=== PATIENT | male | born 1990 | race Caucasian/White ===

== ENCOUNTER 2021-01-04 11:22 | Inpatient (IN) ==
[2021-01-04] MEDS ORDERED: Azithromycin 500 MG in 0.9 % Sodium Chloride 250 ML IVPB ONE (12:01)
[2021-01-04] MEDS ORDERED: cefTRIAXone 1,000 MG in 0.9 % Sodium Chloride Mini Bag 100 ML IVPB ONE (12:01)
[2021-01-04] MEDS ORDERED: Piperacillin/Tazobactam 3.375 GM in Water for inj. (sterile) 20 ML IVP ONE (12:02)
[2021-01-04] MEDS ORDERED: Piperacillin/Tazobactam 3.375 GM in 0.9 % Sodium Chloride Mini Bag 100 ML IVPB ONE (12:12)
[2021-01-04 13:02] LABS: Basophils # 0.1 K/mcL (0.0-0.2); Basophils % 0.4 %; Eosinophils # 0.3 K/mcL (0.0-0.6); Eosinophils % 2.6 %; Hematocrit 36.7 % (37.5-50.1); Hemoglobin 11.3 g/dL (12.9-16.9); Immature Granulocytes % 0.5 % (0-4); Lymphocytes # 1.2 K/mcL (0.6-4.6); Lymphocytes % 9.2 %; Mean Corpuscular HGB Conc 30.8 g/dL (31.6-35.5); Mean Corpuscular Hemoglobin 31.7 pg (28.0-33.3); Mean Corpuscular Volume 102.8 fL (83.0-100.0); Mean Platelet Volume 8.3 fL (9.4-12.4); Neutrophils # 9.4 K/mcL (1.6-8.9); Platelet Count 537 K/mcL (140-400); Red Blood Count 3.57 M/mcL (4.19-5.50); Red Cell Distribution Width 12.7 % (11.5-14.5); Segmented Neutrophils % 72.3 %
[2021-01-04 13:21] LABS: Alanine Aminotransferase 12 Units/L (7-52); Albumin 3.8 g/dL (3.5-5.7); Albumin/Globulin Ratio 0.9 (1.1-2.2); Alkaline Phosphatase 149 Units/L (34-104); Aspartate Amino Transferase 17 Units/L (13-39); BUN/Creatinine Ratio 30 (6-26); Bilirubin,Indirect 0.3 mg/dL (0.0-1.0); Bilirubin,Total 0.3 mg/dL (0.3-1.0); Blood Urea Nitrogen 29 mg/dL (6-20); Calcium 9.9 mg/dL (8.6-10.3); Carbon Dioxide 26 mEq/L (23-29); Chloride 110 mEq/L (98-107); Globulin 4.2 g/dL (2.4-3.5); Glucose 120 mg/dL (70-105); Lipase < 3 Units/L (11-82); Osmolality,Calculated 307 (280-300); Phenytoin (Dilantin) 11.2 mcg/mL (10.0-20.0); Potassium 3.8 mEq/L (3.5-5.1); Sodium 145 mEq/L (136-145); eGFR For African Americans > 60 (> 60); eGFR For Non-African Americans > 60 (> 60)
[2021-01-04] MEDS ORDERED: Naloxone 0.4 MG/ML INJ IVP PRN (14:49)
[2021-01-04] MEDS ORDERED: Ondansetron 4 MG/2 ML VIAL IVP PRN (14:49)
[2021-01-04] MEDS: lamoTRIgine 100 MG TABLET PO SCH (17:44)
[2021-01-04] MEDS: Fluticasone Propionate Nasal 50 MCG/SPRAY BOTTLE NS SCH (19:19)
[2021-01-04] MEDS: PHENobarbitaL 32.4 MG TABLET PO SCH (20:09)
[2021-01-04] MEDS: Lactobacillus 1 EACH CAP.SPRINK PO SCH (20:10)
[2021-01-04] MEDS: Piperacillin/Tazobactam 3.375 GM in 0.9 % Sodium Chloride Mini Bag 100 ML IVPB SCH (20:11)
[2021-01-04] MEDS ORDERED: Loratadine 10 MG TABLET PO SCH (21:00)
[2021-01-04] MEDS ORDERED: OLOPATADINE HCL BOTH EYES SCH (21:00)
[2021-01-04] MEDS: PATANOL 0.1% EYE DROPS OP SCH (22:19)
[2021-01-04] MEDS: CETIRIZINE 10MG TABLET PO SCH (22:20)
[2021-01-04 22:26] LABS: Bilirubin,Urine Negative (Negative); Blood,Urine Trace (Negative); Clarity,Urine Clear (Clear); Color,Urine Light-Yellow (Yellow); Glucose,Urine (UA) Normal (Normal); Ketones,Urine Negative (Negative); Leukocyte Esterase,Urine Negative (Negative); Mucus,Urine Few per lpf (None-Few); Nitrite,Urine Negative (Negative); PH,Urine 7.5 pH Units (5.0-8.0); Protein,Urine 70 mg/dL (Neg-Trace); RBC,Urine 0-3 per hpf (0-3); Specific Gravity,Urine 1.023 (1.010-1.025); Squamous Epithelial Cell,Urine Few per hpf (None-Few); Urobilinogen,Urine Normal (Normal); WBC,Urine 0-3 per hpf (0-3)
[2021-01-05] MEDS: Acetaminophen 325 MG TABLET PO PRN (00:28)
[2021-01-05 01:51] LABS: Basophils % 0.3 %; Eosinophils # 0.5 K/mcL (0.0-0.6); Eosinophils % 4.1 %; Hematocrit 32.5 % (37.5-50.1); Hemoglobin 10.7 g/dL (12.9-16.9); Immature Granulocytes % 0.4 % (0-4); Lymphocytes # 1.6 K/mcL (0.6-4.6); Lymphocytes % 12.9 %; Mean Corpuscular HGB Conc 32.9 g/dL (31.6-35.5); Mean Corpuscular Volume 100.3 fL (83.0-100.0); Mean Platelet Volume 8.2 fL (9.4-12.4); Monocytes # 1.7 K/mcL (0.0-1.3); Monocytes % 13.9 %; Platelet Count 529 K/mcL (140-400); Red Blood Count 3.24 M/mcL (4.19-5.50); Red Cell Distribution Width 12.6 % (11.5-14.5); Segmented Neutrophils % 68.4 %
[2021-01-05 01:52] LABS: Neutrophils # 8.5 K/mcL (1.6-8.9); White Blood Count 12.4 K/mcL (4.3-11.1)
[2021-01-05 02:15] LABS: % Iron Saturation 10 % (20-55); Alanine Aminotransferase 12 Units/L (7-52); Albumin 3.4 g/dL (3.5-5.7); Albumin/Globulin Ratio 0.9 (1.1-2.2); Alkaline Phosphatase 130 Units/L (34-104); Aspartate Amino Transferase 14 Units/L (13-39); BUN/Creatinine Ratio 22 (6-26); Bilirubin,Direct 0.1 mg/dL (0.0-0.2); Bilirubin,Indirect 0.3 mg/dL (0.0-1.0); Bilirubin,Total 0.4 mg/dL (0.3-1.0); Blood Urea Nitrogen 19 mg/dL (6-20); Calcium 8.9 mg/dL (8.6-10.3); Carbon Dioxide 20 mEq/L (23-29); Chloride 112 mEq/L (98-107); Globulin 3.9 g/dL (2.4-3.5); Glucose 120 mg/dL (70-105); Iron 17 mcg/dL (65-175); Magnesium 1.8 mg/dL (1.6-2.6); Osmolality,Calculated 299 (280-300); Phosphorous 2.4 mg/dL (2.7-4.5); Potassium 3.7 mEq/L (3.5-5.1); Sodium 143 mEq/L (136-145); Total Protein 7.3 g/dL (6.4-8.9); Transferrin 120 mg/dL (203-362); eGFR For African Americans > 60 (> 60); eGFR For Non-African Americans > 60 (> 60)
[2021-01-05 02:28] LABS: Ferritin 413 ng/mL (20-250)
[2021-01-05 02:44] LABS: Folate > 22.3 ng/mL (3.0-16.0); Vitamin B12 309 pg/mL (250-1100)
[2021-01-05] MEDS: Piperacillin/Tazobactam 3.375 GM in 0.9 % Sodium Chloride Mini Bag 100 ML IVPB SCH ×3 (02:54→20:02)
[2021-01-05] MEDS: Cyanocobalamin (B-12) 1,000 MCG TABLET PO SCH (08:36)
[2021-01-05] MEDS: lamoTRIgine 100 MG TABLET PO SCH ×2 (08:36→18:18)
[2021-01-05] MEDS: Lactobacillus 1 EACH CAP.SPRINK PO SCH ×2 (08:37→20:07)
[2021-01-05] MEDS: Loratadine 10 MG TABLET PO SCH (08:37)
[2021-01-05] MEDS: PATANOL 0.1% EYE DROPS OP SCH ×2 (08:38→20:32)
[2021-01-05] MEDS ORDERED: Acetaminophen IV 1,000 MG/100 ML BAG IVPB ONE (18:01)
[2021-01-05] MEDS: PHENobarbitaL 32.4 MG TABLET PO SCH (18:19)
[2021-01-05] MEDS: CETIRIZINE 10MG TABLET PO SCH (18:30)
[2021-01-05] MEDS: Fluticasone Propionate Nasal 50 MCG/SPRAY BOTTLE NS SCH (18:31)
[2021-01-06 00:54] LABS: Basophils # 0.1 K/mcL (0.0-0.2); Basophils % 0.5 %; Eosinophils # 0.4 K/mcL (0.0-0.6); Eosinophils % 3.2 %; Hemoglobin 10.1 g/dL (12.9-16.9); Immature Granulocytes % 0.5 % (0-4); Lymphocytes # 1.7 K/mcL (0.6-4.6); Lymphocytes % 12.6 %; Mean Corpuscular HGB Conc 31.6 g/dL (31.6-35.5); Mean Corpuscular Hemoglobin 31.9 pg (28.0-33.3); Mean Corpuscular Volume 100.9 fL (83.0-100.0); Mean Platelet Volume 8.3 fL (9.4-12.4); Monocytes # 1.4 K/mcL (0.0-1.3); Monocytes % 10.2 %; Neutrophils # 9.7 K/mcL (1.6-8.9); Platelet Count 537 K/mcL (140-400); Red Blood Count 3.17 M/mcL (4.19-5.50); Red Cell Distribution Width 12.4 % (11.5-14.5); White Blood Count 13.3 K/mcL (4.3-11.1)
[2021-01-06 01:15] LABS: BUN/Creatinine Ratio 20 (6-26); Blood Urea Nitrogen 18 mg/dL (6-20); Calcium 8.8 mg/dL (8.6-10.3); Carbon Dioxide 21 mEq/L (23-29); Chloride 113 mEq/L (98-107); Glucose 137 mg/dL (70-105); Osmolality,Calculated 302 (280-300); Potassium 3.4 mEq/L (3.5-5.1); Sodium 144 mEq/L (136-145); Vancomycin,Trough 14 mcg/mL (5-10); eGFR For African Americans > 60 (> 60); eGFR For Non-African Americans > 60 (> 60)
[2021-01-06] MEDS: Piperacillin/Tazobactam 3.375 GM in 0.9 % Sodium Chloride Mini Bag 100 ML IVPB SCH ×3 (02:28→20:13)
[2021-01-06] MEDS: lamoTRIgine 100 MG TABLET PO SCH ×2 (08:34→17:50)
[2021-01-06] MEDS: Lactobacillus 1 EACH CAP.SPRINK PO SCH ×2 (08:35→18:02)
[2021-01-06] MEDS: Cyanocobalamin (B-12) 1,000 MCG TABLET PO SCH (08:35)
[2021-01-06] MEDS: Loratadine 10 MG TABLET PO SCH (08:35)
[2021-01-06] MEDS: PATANOL 0.1% EYE DROPS OP SCH ×2 (08:38→20:14)
[2021-01-06] MEDS: PHENobarbitaL 32.4 MG TABLET PO SCH (17:50)
[2021-01-06] MEDS: Fluticasone Propionate Nasal 50 MCG/SPRAY BOTTLE NS SCH (17:50)
[2021-01-06] MEDS: CETIRIZINE 10MG TABLET PO SCH (20:14)
[2021-01-07 03:29] LABS: Basophils # 0.1 K/mcL (0.0-0.2); Basophils % 0.5 %; Eosinophils # 0.5 K/mcL (0.0-0.6); Eosinophils % 3.5 %; Hematocrit 30.1 % (37.5-50.1); Hemoglobin 9.7 g/dL (12.9-16.9); Immature Granulocytes % 0.5 % (0-4); Lymphocytes # 1.6 K/mcL (0.6-4.6); Mean Corpuscular HGB Conc 32.2 g/dL (31.6-35.5); Mean Corpuscular Hemoglobin 32.2 pg (28.0-33.3); Mean Platelet Volume 8.3 fL (9.4-12.4); Monocytes # 1.4 K/mcL (0.0-1.3); Monocytes % 9.1 %; Neutrophils # 11.2 K/mcL (1.6-8.9); Platelet Count 538 K/mcL (140-400); Red Blood Count 3.01 M/mcL (4.19-5.50); Red Cell Distribution Width 12.5 % (11.5-14.5); Segmented Neutrophils % 75.4 %; White Blood Count 14.9 K/mcL (4.3-11.1)
[2021-01-07 03:46] LABS: BUN/Creatinine Ratio 20 (6-26); Blood Urea Nitrogen 17 mg/dL (6-20); Calcium 8.6 mg/dL (8.6-10.3); Carbon Dioxide 22 mEq/L (23-29); Chloride 113 mEq/L (98-107); Glucose 116 mg/dL (70-105); Osmolality,Calculated 301 (280-300); Potassium 3.3 mEq/L (3.5-5.1); Sodium 144 mEq/L (136-145); eGFR For African Americans > 60 (> 60); eGFR For Non-African Americans > 60 (> 60)
[2021-01-07] MEDS: Piperacillin/Tazobactam 3.375 GM in 0.9 % Sodium Chloride Mini Bag 100 ML IVPB SCH ×3 (04:11→19:49)
[2021-01-07] MEDS ORDERED: Potassium Chloride Elixir 20 MEQ/15 ML UDC PO ONE (07:51)
[2021-01-07] MEDS: Lactobacillus 1 EACH CAP.SPRINK PO SCH ×2 (10:00→17:21)
[2021-01-07] MEDS: lamoTRIgine 100 MG TABLET PO SCH ×2 (10:00→17:22)
[2021-01-07] MEDS: Cyanocobalamin (B-12) 1,000 MCG TABLET PO SCH (10:00)
[2021-01-07] MEDS: PATANOL 0.1% EYE DROPS OP SCH ×2 (10:00→19:47)
[2021-01-07] MEDS: Loratadine 10 MG TABLET PO SCH (10:00)
[2021-01-07] MEDS ORDERED: Fluconazole 100 MG TABLET PO ONE (13:30)
[2021-01-07] MEDS: Nystatin SUSP 5 ML UD.LIQ PO SCH ×3 (14:52→19:46)
[2021-01-07] MEDS: PHENobarbitaL 32.4 MG TABLET PO SCH (17:21)
[2021-01-07] MEDS: Fluticasone Propionate Nasal 50 MCG/SPRAY BOTTLE NS SCH (17:22)
[2021-01-07] MEDS: CETIRIZINE 10MG TABLET PO SCH (19:47)
[2021-01-07] MEDS: Acetaminophen 325 MG TABLET PO PRN (23:29)
[2021-01-08] MEDS: Piperacillin/Tazobactam 3.375 GM in 0.9 % Sodium Chloride Mini Bag 100 ML IVPB SCH ×3 (04:22→21:10)
[2021-01-08 08:34] LABS: Basophils # 0.1 K/mcL (0.0-0.2); Basophils % 0.4 %; Eosinophils # 0.7 K/mcL (0.0-0.6); Eosinophils % 5.3 %; Hematocrit 29.6 % (37.5-50.1); Hemoglobin 9.6 g/dL (12.9-16.9); Immature Granulocytes % 0.4 % (0-4); Lymphocytes # 1.3 K/mcL (0.6-4.6); Lymphocytes % 10.2 %; Mean Corpuscular HGB Conc 32.4 g/dL (31.6-35.5); Mean Corpuscular Hemoglobin 32.7 pg (28.0-33.3); Mean Corpuscular Volume 100.7 fL (83.0-100.0); Mean Platelet Volume 8.5 fL (9.4-12.4); Monocytes # 1.4 K/mcL (0.0-1.3); Monocytes % 10.9 %; Neutrophils # 9.1 K/mcL (1.6-8.9); Platelet Count 563 K/mcL (140-400); Red Blood Count 2.94 M/mcL (4.19-5.50); Red Cell Distribution Width 12.5 % (11.5-14.5); Segmented Neutrophils % 72.8 %; White Blood Count 12.6 K/mcL (4.3-11.1)
[2021-01-08] MEDS: Nystatin SUSP 5 ML UD.LIQ PO SCH ×4 (08:42→21:11)
[2021-01-08] MEDS: Loratadine 10 MG TABLET PO SCH (08:42)
[2021-01-08] MEDS: lamoTRIgine 100 MG TABLET PO SCH ×2 (08:42→17:03)
[2021-01-08] MEDS: PATANOL 0.1% EYE DROPS OP SCH ×2 (08:43→21:12)
[2021-01-08] MEDS: Cyanocobalamin (B-12) 1,000 MCG TABLET PO SCH (08:43)
[2021-01-08] MEDS: Lactobacillus 1 EACH CAP.SPRINK PO SCH ×2 (08:43→17:03)
[2021-01-08] MEDS: Fluconazole 100 MG TABLET PO SCH (08:43)
[2021-01-08] MEDS ORDERED: Potassium Chloride 20 MEQ, Lidocaine 1% 2 ML in 0.9 % Sodium Chloride 250 ML IVPB ONE (08:53)
[2021-01-08 10:10] LABS: BUN/Creatinine Ratio 19 (6-26); Blood Urea Nitrogen 13 mg/dL (6-20); Calcium 8.4 mg/dL (8.6-10.3); Carbon Dioxide 24 mEq/L (23-29); Chloride 110 mEq/L (98-107); Glucose 76 mg/dL (70-105); Magnesium 1.8 mg/dL (1.6-2.6); Osmolality,Calculated 295 (280-300); Phosphorous 2.8 mg/dL (2.7-4.5); Potassium 3.3 mEq/L (3.5-5.1); Sodium 143 mEq/L (136-145); eGFR For African Americans > 60 (> 60); eGFR For Non-African Americans > 60 (> 60)
[2021-01-08] MEDS ORDERED: Acetaminophen 325 MG TABLET PO PRN (10:34)
[2021-01-08] MEDS: PHENobarbitaL 32.4 MG TABLET PO SCH (17:03)
[2021-01-08] MEDS: Fluticasone Propionate Nasal 50 MCG/SPRAY BOTTLE NS SCH ×2 (17:04→21:12)
[2021-01-08] MEDS: CETIRIZINE 10MG TABLET PO SCH (21:12)
[2021-01-09] MEDS: Piperacillin/Tazobactam 3.375 GM in 0.9 % Sodium Chloride Mini Bag 100 ML IVPB SCH ×3 (05:36→20:24)
[2021-01-09 08:17] LABS: Influenza A PCR Negative (Negative); Influenza B PCR Negative (Negative); Resp. Syncytial Virus PCR Negative (Negative); SARS-CoV-2 by PCR (In House) Negative (Negative)
[2021-01-09] MEDS: Loratadine 10 MG TABLET PO SCH (08:54)
[2021-01-09] MEDS: Cyanocobalamin (B-12) 1,000 MCG TABLET PO SCH (08:54)
[2021-01-09] MEDS: Lactobacillus 1 EACH CAP.SPRINK PO SCH ×2 (08:54→17:47)
[2021-01-09] MEDS: Fluconazole 100 MG TABLET PO SCH (08:54)
[2021-01-09] MEDS: Nystatin SUSP 5 ML UD.LIQ PO SCH ×4 (08:54→20:25)
[2021-01-09] MEDS: lamoTRIgine 100 MG TABLET PO SCH ×2 (09:10→17:47)
[2021-01-09] MEDS: PATANOL 0.1% EYE DROPS OP SCH (09:11)
[2021-01-09 12:08] LABS: Hematocrit 29.4 % (37.5-50.1); Hemoglobin 9.5 g/dL (12.9-16.9); Mean Corpuscular HGB Conc 32.3 g/dL (31.6-35.5); Mean Corpuscular Hemoglobin 32.1 pg (28.0-33.3); Mean Corpuscular Volume 99.3 fL (83.0-100.0); Mean Platelet Volume 8.3 fL (9.4-12.4); Platelet Count 587 K/mcL (140-400); Red Blood Count 2.96 M/mcL (4.19-5.50); Red Cell Distribution Width 12.2 % (11.5-14.5); White Blood Count 10.7 K/mcL (4.3-11.1)
[2021-01-09] MEDS ORDERED: *HR* Etomidate 40 MG/20 ML VIAL IVP ONE (12:21)
[2021-01-09] MEDS ORDERED: Lidocaine -MPF 4% 5 ML AMPUL ONE (12:22)
[2021-01-09 12:27] LABS: BUN/Creatinine Ratio 14 (6-26); Blood Urea Nitrogen 9 mg/dL (6-20); Calcium 8.6 mg/dL (8.6-10.3); Carbon Dioxide 25 mEq/L (23-29); Chloride 108 mEq/L (98-107); Glucose 83 mg/dL (70-105); Magnesium 1.9 mg/dL (1.6-2.6); Osmolality,Calculated 292 (280-300); Phosphorous 2.6 mg/dL (2.7-4.5); Potassium 3.2 mEq/L (3.5-5.1); Sodium 142 mEq/L (136-145); Vancomycin,Trough 10 mcg/mL (5-10); eGFR For African Americans > 60 (> 60); eGFR For Non-African Americans > 60 (> 60)
[2021-01-09] MEDS ORDERED: *HR* FentaNYL (PF) 100 MCG/2 ML VIAL ONE ×3 (12:42→13:24)
[2021-01-09] MEDS ORDERED: *HR* Midazolam HCl 2 MG/2 ML VIAL ONE (12:42)
[2021-01-09] MEDS ORDERED: EPHEDrine 50 MG/ML VIAL ONE (13:03)
[2021-01-09] MEDS ORDERED: Ondansetron 4 MG/2 ML VIAL ONE (13:25)
[2021-01-09] MEDS ORDERED: *HR* Rocuronium Bromide 50 MG/5 ML VIAL ONE (13:29)
[2021-01-09] MEDS ORDERED: Sugammadex Sodium 200 MG/2 ML VIAL IV ONE (13:35)
[2021-01-09] MEDS ORDERED: Ketorolac 30 MG/ML VIAL ONE (13:54)
[2021-01-09] MEDS: *HR* HYDROmorphone PF 0.5 MG/0.5 ML SYRINGE IVP PRN ×2 (14:22→14:31)
[2021-01-09] MEDS ORDERED: Potassium Phosphate 44 MEQ in 0.9 % Sodium Chloride 250 ML IVPB ONE ×2 (15:02→15:13)
[2021-01-09] MEDS ORDERED: *HR* HYDROmorphone PF 0.5 MG/0.5 ML SYRINGE IVP PRN (15:13)
[2021-01-09] MEDS ORDERED: Ondansetron 4 MG/2 ML VIAL IVP PRN (15:13)
[2021-01-09] MEDS ORDERED: Naloxone 0.4 MG/ML INJ IVP PRN (15:13)
[2021-01-09] MEDS: Ketorolac 15 MG/ML VIAL IVP SCH ×2 (16:27→22:15)
[2021-01-09] MEDS: 0.9 % Sodium Chloride 1,000 ML IVC SCH (16:29)
[2021-01-09] MEDS: PHENobarbitaL 32.4 MG TABLET PO SCH (17:47)
[2021-01-09] MEDS: Fluticasone Propionate Nasal 50 MCG/SPRAY BOTTLE NS SCH ×2 (17:52→20:26)
[2021-01-09] MEDS: Patient Taking Own Medication 1 EACH OP SCH (20:30)
[2021-01-09] MEDS: ZYRTEC 10MG TABLET PO SCH (20:30)
[2021-01-09] MEDS: *HR* HYDROmorphone (PF) 1 MG/ML SYRINGE IVP PRN (21:55)
[2021-01-10] MEDS: *HR* HYDROmorphone (PF) 1 MG/ML SYRINGE IVP PRN ×6 (00:03→22:40)
[2021-01-10] MEDS: Piperacillin/Tazobactam 3.375 GM in 0.9 % Sodium Chloride Mini Bag 100 ML IVPB SCH ×3 (02:15→18:21)
[2021-01-10] MEDS: Ketorolac 15 MG/ML VIAL IVP SCH ×3 (04:27→18:21)
[2021-01-10] MEDS: Acetaminophen 325 MG TABLET PO PRN (04:50)
[2021-01-10 05:45] LABS: Basophils # 0.1 K/mcL (0.0-0.2); Basophils % 0.5 %; Eosinophils % 0.4 %; Hematocrit 27.3 % (37.5-50.1); Hemoglobin 8.7 g/dL (12.9-16.9); Immature Granulocytes % 0.4 % (0-4); Lymphocytes # 1.7 K/mcL (0.6-4.6); Mean Corpuscular HGB Conc 31.9 g/dL (31.6-35.5); Mean Corpuscular Hemoglobin 31.5 pg (28.0-33.3); Mean Corpuscular Volume 98.9 fL (83.0-100.0); Mean Platelet Volume 8.5 fL (9.4-12.4); Monocytes # 1.4 K/mcL (0.0-1.3); Monocytes % 12.8 %; Platelet Count 655 K/mcL (140-400); Red Blood Count 2.76 M/mcL (4.19-5.50); Red Cell Distribution Width 12.2 % (11.5-14.5); Segmented Neutrophils % 70.9 %; White Blood Count 11.3 K/mcL (4.3-11.1)
[2021-01-10 06:04] LABS: Alanine Aminotransferase 9 Units/L (7-52); Albumin 2.9 g/dL (3.5-5.7); Albumin/Globulin Ratio 0.8 (1.1-2.2); Alkaline Phosphatase 121 Units/L (34-104); Aspartate Amino Transferase 18 Units/L (13-39); BUN/Creatinine Ratio 22 (6-26); Bilirubin,Total 0.3 mg/dL (0.3-1.0); Blood Urea Nitrogen 13 mg/dL (6-20); Calcium 8.4 mg/dL (8.6-10.3); Carbon Dioxide 25 mEq/L (23-29); Chloride 110 mEq/L (98-107); Globulin 3.7 g/dL (2.4-3.5); Glucose 86 mg/dL (70-105); Magnesium 1.6 mg/dL (1.6-2.6); Osmolality,Calculated 295 (280-300); Phosphorous 2.7 mg/dL (2.7-4.5); Potassium 3.9 mEq/L (3.5-5.1); Sodium 143 mEq/L (136-145); Total Protein 6.6 g/dL (6.4-8.9); eGFR For African Americans > 60 (> 60); eGFR For Non-African Americans > 60 (> 60)
[2021-01-10] MEDS: Fluconazole 100 MG TABLET PO SCH (09:01)
[2021-01-10] MEDS: lamoTRIgine 100 MG TABLET PO SCH ×2 (09:02→16:51)
[2021-01-10] MEDS: Loratadine 10 MG TABLET PO SCH (09:02)
[2021-01-10] MEDS: Cyanocobalamin (B-12) 1,000 MCG TABLET PO SCH (09:02)
[2021-01-10] MEDS: Sennosides/Docusate Sodium TABLET PO SCH ×2 (09:02→20:04)
[2021-01-10] MEDS: Calcium Gluconate 1gm/50mL 1 GM/50 ML BAG IVPB SCH ×2 (09:04→11:04)
[2021-01-10] MEDS: 0.9 % Sodium Chloride 1,000 ML IVC SCH (09:05)
[2021-01-10] MEDS: Lactobacillus 1 EACH CAP.SPRINK PO SCH ×2 (09:12→16:51)
[2021-01-10] MEDS: Patient Taking Own Medication 1 EACH OP SCH ×2 (09:12→20:37)
[2021-01-10] MEDS: Nystatin SUSP 5 ML UD.LIQ PO SCH ×4 (09:12→20:05)
[2021-01-10] MEDS ORDERED: traZODone 50 MG TABLET PO PRN (11:00)
[2021-01-10] MEDS ORDERED: D5% in Water 1,000 ML IVC PRN (12:11)
[2021-01-10] MEDS ORDERED: Dextrose Gel 15 GM/37.5 ML TUBE PO PRN ×2 (12:11)
[2021-01-10] MEDS ORDERED: *HR* Dextrose 50 % in Water (Vial) 50 ML VIAL IVP PRN (12:11)
[2021-01-10] MEDS: PHENobarbitaL 32.4 MG TABLET PO SCH (16:51)
[2021-01-10] MEDS: Fluticasone Propionate Nasal 50 MCG/SPRAY BOTTLE NS SCH (18:26)
[2021-01-10] MEDS: ZYRTEC 10MG TABLET PO SCH (20:37)
[2021-01-11] MEDS: 0.9 % Sodium Chloride 1,000 ML IVC SCH (00:37)
[2021-01-11] MEDS: Ketorolac 15 MG/ML VIAL IVP SCH ×4 (00:39→16:57)
[2021-01-11] MEDS: *HR* HYDROmorphone (PF) 1 MG/ML SYRINGE IVP PRN ×7 (01:04→22:15)
[2021-01-11] MEDS: Piperacillin/Tazobactam 3.375 GM in 0.9 % Sodium Chloride Mini Bag 100 ML IVPB SCH ×3 (02:53→18:18)
[2021-01-11 06:59] LABS: Basophils # 0.1 K/mcL (0.0-0.2); Basophils % 0.5 %; Eosinophils # 0.6 K/mcL (0.0-0.6); Hematocrit 24.8 % (37.5-50.1); Hemoglobin 7.8 g/dL (12.9-16.9); Immature Granulocytes % 0.3 % (0-4); Lymphocytes # 1.7 K/mcL (0.6-4.6); Lymphocytes % 15.1 %; Mean Corpuscular HGB Conc 31.5 g/dL (31.6-35.5); Mean Corpuscular Hemoglobin 32.2 pg (28.0-33.3); Mean Corpuscular Volume 102.5 fL (83.0-100.0); Mean Platelet Volume 8.7 fL (9.4-12.4); Monocytes # 0.9 K/mcL (0.0-1.3); Monocytes % 7.9 %; Neutrophils # 7.9 K/mcL (1.6-8.9); Platelet Count 638 K/mcL (140-400); Red Blood Count 2.42 M/mcL (4.19-5.50); Red Cell Distribution Width 12.1 % (11.5-14.5); Segmented Neutrophils % 71.2 %; White Blood Count 11.1 K/mcL (4.3-11.1)
[2021-01-11 07:28] LABS: Alanine Aminotransferase 10 Units/L (7-52); Albumin 2.6 g/dL (3.5-5.7); Albumin/Globulin Ratio 0.8 (1.1-2.2); Alkaline Phosphatase 134 Units/L (34-104); Aspartate Amino Transferase 24 Units/L (13-39); BUN/Creatinine Ratio 19 (6-26); Bilirubin,Total 0.3 mg/dL (0.3-1.0); Blood Urea Nitrogen 9 mg/dL (6-20); Carbon Dioxide 22 mEq/L (23-29); Chloride 109 mEq/L (98-107); Globulin 3.3 g/dL (2.4-3.5); Glucose 63 mg/dL (70-105); Magnesium 1.9 mg/dL (1.6-2.6); Osmolality,Calculated 287 (280-300); Phosphorous 2.2 mg/dL (2.7-4.5); Potassium 3.9 mEq/L (3.5-5.1); Sodium 140 mEq/L (136-145); Total Protein 5.9 g/dL (6.4-8.9); eGFR For African Americans > 60 (> 60); eGFR For Non-African Americans > 60 (> 60)
[2021-01-11] MEDS: Lactobacillus 1 EACH CAP.SPRINK PO SCH ×2 (08:01→16:57)
[2021-01-11] MEDS ORDERED: Potassium Phosphate 44 MEQ in 0.9 % Sodium Chloride 250 ML IVPB ONE (08:07)
[2021-01-11] MEDS: Calcium Gluconate 1gm/50mL 1 GM/50 ML BAG IVPB SCH ×2 (09:14→10:31)
[2021-01-11] MEDS: Loratadine 10 MG TABLET PO SCH (09:15)
[2021-01-11] MEDS: Nystatin SUSP 5 ML UD.LIQ PO SCH ×4 (09:15→22:15)
[2021-01-11] MEDS: Fluconazole 100 MG TABLET PO SCH (09:15)
[2021-01-11] MEDS: lamoTRIgine 100 MG TABLET PO SCH ×2 (09:15→16:57)
[2021-01-11] MEDS: Sennosides/Docusate Sodium TABLET PO SCH ×2 (09:15→22:19)
[2021-01-11] MEDS: Cyanocobalamin (B-12) 1,000 MCG TABLET PO SCH (09:16)
[2021-01-11] MEDS: Patient Taking Own Medication 1 EACH OP SCH ×2 (09:21→22:23)
[2021-01-11 12:27] LABS: Hematocrit 27.3 % (37.5-50.1)
[2021-01-11] MEDS ORDERED: Dextrose Gel 15 GM/37.5 ML TUBE PO PRN ×2 (12:58)
[2021-01-11] MEDS ORDERED: D5% in Water 1,000 ML IVC PRN (12:58)
[2021-01-11] MEDS ORDERED: *HR* Dextrose 50 % in Water (Vial) 50 ML VIAL IVP PRN (12:58)
[2021-01-11] MEDS: PHENobarbitaL 32.4 MG TABLET PO SCH (16:57)
[2021-01-11] MEDS: Fluticasone Propionate Nasal 50 MCG/SPRAY BOTTLE NS SCH (22:22)
[2021-01-11] MEDS: ZYRTEC 10MG TABLET PO SCH (22:23)
[2021-01-12] MEDS: Ketorolac 15 MG/ML VIAL IVP SCH ×4 (00:17→18:01)
[2021-01-12] MEDS: Piperacillin/Tazobactam 3.375 GM in 0.9 % Sodium Chloride Mini Bag 100 ML IVPB SCH ×3 (01:18→18:01)
[2021-01-12] MEDS: *HR* HYDROmorphone (PF) 1 MG/ML SYRINGE IVP PRN ×6 (01:19→22:03)
[2021-01-12] MEDS: Acetaminophen 325 MG TABLET PO PRN (01:49)
[2021-01-12 02:04] LABS: Basophils # 0.1 K/mcL (0.0-0.2); Basophils % 0.6 %; Eosinophils # 0.8 K/mcL (0.0-0.6); Eosinophils % 5.9 %; Hematocrit 28.6 % (37.5-50.1); Hemoglobin 9.3 g/dL (12.9-16.9); Immature Granulocytes % 0.3 % (0-4); Lymphocytes # 1.9 K/mcL (0.6-4.6); Lymphocytes % 13.6 %; Mean Corpuscular HGB Conc 32.5 g/dL (31.6-35.5); Mean Corpuscular Hemoglobin 32.3 pg (28.0-33.3); Mean Corpuscular Volume 99.3 fL (83.0-100.0); Mean Platelet Volume 8.4 fL (9.4-12.4); Monocytes # 1.4 K/mcL (0.0-1.3); Monocytes % 9.9 %; Neutrophils # 9.9 K/mcL (1.6-8.9); Platelet Count 831 K/mcL (140-400); Red Blood Count 2.88 M/mcL (4.19-5.50); Red Cell Distribution Width 12.4 % (11.5-14.5); Segmented Neutrophils % 69.7 %; White Blood Count 14.1 K/mcL (4.3-11.1)
[2021-01-12 02:15] LABS: Alanine Aminotransferase 16 Units/L (7-52); Albumin/Globulin Ratio 0.8 (1.1-2.2); Alkaline Phosphatase 185 Units/L (34-104); Aspartate Amino Transferase 35 Units/L (13-39); BUN/Creatinine Ratio 12 (6-26); Bilirubin,Total 0.3 mg/dL (0.3-1.0); Blood Urea Nitrogen 8 mg/dL (6-20); Calcium 9.1 mg/dL (8.6-10.3); Carbon Dioxide 27 mEq/L (23-29); Chloride 104 mEq/L (98-107); Glucose 78 mg/dL (70-105); Magnesium 1.8 mg/dL (1.6-2.6); Osmolality,Calculated 287 (280-300); Potassium 4.5 mEq/L (3.5-5.1); Sodium 140 mEq/L (136-145); eGFR For African Americans > 60 (> 60); eGFR For Non-African Americans > 60 (> 60)
[2021-01-12] MEDS: lamoTRIgine 100 MG TABLET PO SCH ×2 (08:29→18:01)
[2021-01-12] MEDS: Nystatin SUSP 5 ML UD.LIQ PO SCH ×4 (08:30→20:04)
[2021-01-12] MEDS: Sennosides/Docusate Sodium TABLET PO SCH ×2 (08:30→20:04)
[2021-01-12] MEDS: Cyanocobalamin (B-12) 1,000 MCG TABLET PO SCH (08:30)
[2021-01-12] MEDS: Lactobacillus 1 EACH CAP.SPRINK PO SCH ×2 (08:31→18:01)
[2021-01-12] MEDS: Patient Taking Own Medication 1 EACH OP SCH ×2 (08:31→20:06)
[2021-01-12] MEDS: Loratadine 10 MG TABLET PO SCH (08:31)
[2021-01-12] MEDS: Fluconazole 100 MG TABLET PO SCH (08:31)
[2021-01-12] MEDS: PHENobarbitaL 32.4 MG TABLET PO SCH (18:01)
[2021-01-12] MEDS: ZYRTEC 10MG TABLET PO SCH (20:06)
[2021-01-13] MEDS: Ketorolac 15 MG/ML VIAL IVP SCH ×4 (01:05→17:04)
[2021-01-13] MEDS: Piperacillin/Tazobactam 3.375 GM in 0.9 % Sodium Chloride Mini Bag 100 ML IVPB SCH ×3 (01:06→18:40)
[2021-01-13 05:06] LABS: Hematocrit 27.7 % (37.5-50.1); Mean Corpuscular HGB Conc 32.5 g/dL (31.6-35.5); Mean Corpuscular Hemoglobin 31.8 pg (28.0-33.3); Mean Corpuscular Volume 97.9 fL (83.0-100.0); Mean Platelet Volume 8.3 fL (9.4-12.4); Platelet Count 849 K/mcL (140-400); Red Blood Count 2.83 M/mcL (4.19-5.50); Red Cell Distribution Width 12.5 % (11.5-14.5); White Blood Count 10.7 K/mcL (4.3-11.1)
[2021-01-13 05:19] LABS: BUN/Creatinine Ratio 11 (6-26); Blood Urea Nitrogen 8 mg/dL (6-20); Carbon Dioxide 26 mEq/L (23-29); Chloride 101 mEq/L (98-107); Glucose 79 mg/dL (70-105); Magnesium 2.2 mg/dL (1.6-2.6); Osmolality,Calculated 283 (280-300); Potassium 3.8 mEq/L (3.5-5.1); Sodium 138 mEq/L (136-145); eGFR For African Americans > 60 (> 60); eGFR For Non-African Americans > 60 (> 60)
[2021-01-13] MEDS: Nystatin SUSP 5 ML UD.LIQ PO SCH ×4 (08:19→20:02)
[2021-01-13] MEDS: lamoTRIgine 100 MG TABLET PO SCH ×2 (08:19→17:03)
[2021-01-13] MEDS: Fluconazole 100 MG TABLET PO SCH (08:20)
[2021-01-13] MEDS: Cyanocobalamin (B-12) 1,000 MCG TABLET PO SCH (08:20)
[2021-01-13] MEDS: Acetaminophen 325 MG TABLET PO PRN (08:20)
[2021-01-13] MEDS: Loratadine 10 MG TABLET PO SCH (08:20)
[2021-01-13] MEDS: Lactobacillus 1 EACH CAP.SPRINK PO SCH ×2 (08:20→17:03)
[2021-01-13] MEDS: Sennosides/Docusate Sodium TABLET PO SCH ×2 (08:20→20:02)
[2021-01-13] MEDS: Patient Taking Own Medication 1 EACH OP SCH ×2 (08:23→20:03)
[2021-01-13] MEDS: Fluticasone Propionate Nasal 50 MCG/SPRAY BOTTLE NS SCH (17:03)
[2021-01-13] MEDS: PHENobarbitaL 32.4 MG TABLET PO SCH (17:03)
[2021-01-13] MEDS: ZYRTEC 10MG TABLET PO SCH (20:03)
[2021-01-14] MEDS: Ketorolac 15 MG/ML VIAL IVP SCH ×2 (00:24→07:30)
[2021-01-14] MEDS: Piperacillin/Tazobactam 3.375 GM in 0.9 % Sodium Chloride Mini Bag 100 ML IVPB SCH ×2 (01:49→08:55)
[2021-01-14 04:26] LABS: Hematocrit 28.1 % (37.5-50.1); Mean Corpuscular Hemoglobin 31.8 pg (28.0-33.3); Mean Corpuscular Volume 99.3 fL (83.0-100.0); Mean Platelet Volume 8.2 fL (9.4-12.4); Platelet Count 895 K/mcL (140-400); Red Blood Count 2.83 M/mcL (4.19-5.50); Red Cell Distribution Width 12.7 % (11.5-14.5); White Blood Count 9.8 K/mcL (4.3-11.1)
[2021-01-14 04:46] LABS: BUN/Creatinine Ratio 17 (6-26); Blood Urea Nitrogen 13 mg/dL (6-20); Calcium 8.8 mg/dL (8.6-10.3); Carbon Dioxide 29 mEq/L (23-29); Chloride 103 mEq/L (98-107); Glucose 87 mg/dL (70-105); Magnesium 2.1 mg/dL (1.6-2.6); Osmolality,Calculated 285 (280-300); Phosphorous 2.8 mg/dL (2.7-4.5); Sodium 138 mEq/L (136-145); eGFR For African Americans > 60 (> 60); eGFR For Non-African Americans > 60 (> 60)
[2021-01-14] MEDS: Sennosides/Docusate Sodium TABLET PO SCH (08:54)
[2021-01-14] MEDS: Nystatin SUSP 5 ML UD.LIQ PO SCH ×2 (08:54→12:11)
[2021-01-14] MEDS: Fluconazole 100 MG TABLET PO SCH (08:55)
[2021-01-14] MEDS: Loratadine 10 MG TABLET PO SCH (08:55)
[2021-01-14] MEDS: Lactobacillus 1 EACH CAP.SPRINK PO SCH (08:55)
[2021-01-14] MEDS: Cyanocobalamin (B-12) 1,000 MCG TABLET PO SCH (08:55)
[2021-01-14] MEDS: lamoTRIgine 100 MG TABLET PO SCH (08:55)
[2021-01-14] MEDS: Patient Taking Own Medication 1 EACH OP SCH (08:57)
[2021-01-14 12:26] VITALS: BP 105/67
== END 2021-01-14 15:17 | disposition home health service (06) | DRG 710 ==
LOC: EMEROOARM 11:22 → 3BNU 11:22 → SUATTDRO 14:44 → 3BNU 16:00 → SUATTDRO 01-08 15:03 → 2NNU 01-08 17:46
PROVIDERS: ADMIT Pharmacist; ATTEND Internal Medicine